=== PATIENT | male | born 1995 | race Caucasian/White ===

== ENCOUNTER 2023-10-02 12:35 | Inpatient (IN) | payer OTHER ==
[2023-10-02 13:19] VITALS: BMI 27.8
[2023-10-02] MEDS ORDERED: IBUPROFEN 400 MG TABLET (FP) PO PRN (16:40)
[2023-10-02] MEDS ORDERED: hydrOXYzine PAMOATE 25 MG CAPSULE (FP) PO PRN (16:40)
[2023-10-02] MEDS ORDERED: BENZONATATE 200 MG CAPSULE PO PRN (16:40)
[2023-10-02] MEDS ORDERED: MAG HYDROX/AL HYDROX/SIMETH 30 ML UNIT-DOSE CUP PO PRN (16:40)
[2023-10-02] MEDS ORDERED: LOPERAMIDE HCL 2 MG CAPSULE PO PRN (16:40)
[2023-10-02] MEDS ORDERED: NALOXONE HCL (KLOXXADO) 8 MG SPRAY NS PRN (16:40)
[2023-10-02] MEDS ORDERED: MAGNESIUM HYDROX 2400MG/30ML ORAL SUSPENSION 30 ML CUP PO PRN (16:40)
[2023-10-02] MEDS ORDERED: ACETAMINOPHEN 325 MG TABLET (FP) PO PRN (16:40)
[2023-10-02] MEDS ORDERED: POLYETHYLENE GLYCOL (HEALTHYLAX) 3350 17 GM PACKET PO PRN (16:40)
[2023-10-02] MEDS ORDERED: guaiFENesin 600 MG TABLET.ER (FP) PO PRN (16:40)
[2023-10-02] MEDS ORDERED: NALOXONE HCL 0.4 MG/ML VIAL IM PRN (16:40)
[2023-10-02] MEDS ORDERED: methaDONE HCL 40 MG DISPERSABLE TABLET PO SCH (16:45)
[2023-10-02] MEDS: MELATONIN 5 MG TABLETS PO SCH (21:30)
[2023-10-02] MEDS: THIAMINE HCL 100 MG TABLET (FP) PO SCH (21:31)
[2023-10-02] MEDS: TUBERCULIN PPD 5 TU/0.1ML SYRINGE (IN PATIENT USE ONLY) ID ONE (21:32)
[2023-10-02] MEDS: PRENATAL VITAMINS W/ FOLIC ACID TABLET (FP) PO SCH (21:33)
[2023-10-03] MEDS: NICOTINE 14 MG/24 HOURS TOPICAL PATCH TD SCH (09:27)
[2023-10-03] MEDS ORDERED: methaDONE HCL 40 MG DISPERSABLE TABLET PO SCH (10:00)
[2023-10-03] MEDS: busPIRone HCL 5 MG TABLET PO SCH (11:54)
[2023-10-03] MEDS: traZODone HCL 50 MG TABLET (FP) PO SCH (21:24)
[2023-10-04] MEDS: busPIRone HCL 5 MG TABLET PO SCH (21:21)
[2023-10-05 15:32] LABS: URINE APPEARANCE CLEAR; URINE BILIRUBIN NEGATIVE (NEGATIVE); URINE COLOR YELLOW; URINE GLUCOSE (UA) NEGATIVE (NEGATIVE); URINE KETONE NEGATIVE (NEGATIVE); URINE LEUK ESTERASE NEGATIVE (NEGATIVE); URINE NITRITE NEGATIVE (NEGATIVE); URINE PROTEIN NEGATIVE (NEGATIVE); URINE UROBILINOGEN 0.2 mg/dL (0.2-1.0)
[2023-10-05] MEDS: NICOTINE POLACRILEX 2 MG GUM BUC PRN (17:35)
[2023-10-06] MEDS ORDERED: COLLOIDAL OATMEAL 1 BAR EACH TP PRN (10:52)
[2023-10-06] MEDS: BENZOCAINE/MENTHOL (CHLORASEPTIC ) LOZENGE MM PRN (23:11)
[2023-10-07] MEDS ORDERED: methaDONE HCL 10 MG TABLET ONE (09:33)
[2023-10-07] MEDS: TUBERCULIN PPD 5 TU/0.1ML VIAL ID ONE (15:15)
[2023-10-08] MEDS: busPIRone HCL 10 MG TABLET (FP) PO SCH (21:35)
[2023-10-09] MEDS: IBUPROFEN 600 MG TABLET (FP) PO PRN (21:55)
[2023-10-13] MEDS: BACLOFEN 10 MG TABLET (FP) PO SCH (14:12)
[2023-10-15] MEDS: CARBAMIDE PEROXIDE 6.5% OTIC 15 ML BOTTLE AU SCH (21:42)
[2023-10-15] MEDS ORDERED: P-EPHED 60MG/TRIPROLIDI 2.5MG TABLET PO PRN (23:31)
[2023-10-16 10:32] LABS: BASO % 0.5 % (0-2.0); EOS % 1.5 % (0-4.5); HEMATOCRIT 39.4 % (35.4-49); LYMPH % 37.2 % (8-40); MCH 28.7 pg (25.7-33.7); MEAN PLT VOLUME 9.9 fl (7.5-11.1); MONO % 9.8 % (3.8-10.2); PLATELET COUNT 184 10^3/uL (134-434); RBC 4.53 M/mm3 (4.00-5.60); WHITE BLOOD COUNT 8.5 K/mm3 (4.0-10.0)
[2023-10-16 11:32] LABS: ALBUMIN 3.5 g/dl (3.4-5.0); BLOOD UREA NITROGEN 13.8 mg/dL (7-18); CALCIUM 9.1 mg/dL (8.5-10.1)
[2023-10-16 11:35] LABS: CREATININE 0.9 mg/dL (0.55-1.3)
[2023-10-16 11:37] LABS: BILIRUBIN,TOTAL 0.2 mg/dL (0.2-1)
[2023-10-19] MEDS: LACTULOSE 20 GM/30 ML UDC (FOR ORAL USE ONLY) PO SCH ×2 (15:14→21:58)
[2023-10-26 07:18] VITALS: RESP 18
[2023-10-26] MEDS: methaDONE HCL 10 MG TABLET PO SCH (11:36)
[2023-10-27] MEDS ORDERED: methaDONE HCL 10 MG TABLET PO SCH (10:15)
[2023-10-30 07:04] VITALS: BP 101/63; PULSE 77; TEMP 97.8
== END 2023-10-30 10:05 | disposition home or self-care (01) | DRG 772 ==
LOC: YASAS 12:35 → Y5N 18:09
PROVIDERS: ADMIT Allergy & Immunology; ATTEND Psychiatry & Neurology Pain Medicine
PROC: HZ42ZZZ Group Counseling for Substance Abuse Treatment, Cognitive-Behavioral (ICD-10-PCS; principal; 2023-10-01)
DX: F11.20 Opioid dependence, uncomplicated (principal); F14.20 Cocaine dependence, uncomplicated; F17.210 Nicotine dependence, cigarettes, uncomplicated; F19.280 Other psychoactive substance dependence with psychoactive substance-induced anxiety disorder; F19.282 Other psychoactive substance dependence with psychoactive substance-induced sleep disorder; F41.9 Anxiety disorder, unspecified; G47.00 Insomnia, unspecified; U07.1 COVID-19; E72.20 Disorder of urea cycle metabolism, unspecified; H61.21 Impacted cerumen, right ear
CPT/HCPCS: 36415; 71045-TC-FY; 80053; 81003; 82140; 85025; 87635; 93005; 93010; J0475

== ENCOUNTER 2024-08-26 20:15 | Emergency (ER) | payer OTHER ==
[2024-08-26 20:24] VITALS: BP 117/77; PULSE 84; RESP 18; TEMP 98.6; BMI 27.1
[2024-08-26] MEDS ORDERED: IBUPROFEN 400 MG TABLET (FP) PO ONE (22:55)
[2024-08-26] MEDS: IBUPROFEN 400 MG TABLET (FP) PO ONE (22:56)
== END 2024-08-26 23:05 | disposition home or self-care (01) ==
LOC: JERFT 20:15 → JER 20:15 → JERFT 23:05
DX: M79.672 Pain in left foot (principal); W18.41XA Slipping, tripping and stumbling without falling due to stepping on object, initial encounter
CPT/HCPCS: 73610-TC-LT-FY; 73630-TC-LT; 99283-25

== ENCOUNTER 2024-08-30 15:42 | Inpatient (IN) | payer OTHER ==
[2024-08-30 17:13] VITALS: BMI 27.4
[2024-08-30] MEDS ORDERED: POLYETHYLENE GLYCOL (HEALTHYLAX) 3350 17 GM PACKET PO PRN (18:22)
[2024-08-30] MEDS ORDERED: BENZOCAINE/MENTHOL (CHLORASEPTIC ) LOZENGE MM PRN (18:22)
[2024-08-30] MEDS ORDERED: MAGNESIUM HYDROX 2400MG/30ML ORAL SUSPENSION 30 ML CUP PO PRN (18:22)
[2024-08-30] MEDS ORDERED: guaiFENesin 600 MG TABLET.ER (FP) PO PRN (18:22)
[2024-08-30] MEDS ORDERED: MAG HYDROX/AL HYDROX/SIMETH 30 ML UNIT-DOSE CUP PO PRN (18:22)
[2024-08-30] MEDS ORDERED: NALOXONE (NARCAN) HCL 4 MG/0.1 ML SPRAY NS PRN (18:22)
[2024-08-30] MEDS ORDERED: LOPERAMIDE HCL 2 MG CAPSULE PO PRN (18:22)
[2024-08-30] MEDS ORDERED: BENZONATATE 200 MG CAPSULE PO PRN (18:22)
[2024-08-30] MEDS ORDERED: hydrOXYzine PAMOATE 25 MG CAPSULE (FP) PO PRN (18:22)
[2024-08-30] MEDS ORDERED: ACETAMINOPHEN 500 MG TABLET (FP) PO PRN (18:44)
[2024-08-30] MEDS: traZODone HCL 50 MG TABLET (FP) PO ONE (21:13)
[2024-08-30] MEDS: MELATONIN 5 MG TABLETS PO SCH (21:13)
[2024-08-30] MEDS: THIAMINE 100 MG TABLET PO SCH (21:13)
[2024-08-30] MEDS: BACLOFEN 10 MG TABLET (FP) PO SCH (21:13)
[2024-08-30] MEDS: GABAPENTIN 300 MG CAPSULE PO SCH (21:13)
[2024-08-30] MEDS: busPIRone HCL 10 MG TABLET (FP) PO ONE (21:14)
[2024-08-30] MEDS ORDERED: GABAPENTIN 300 MG CAPSULE PO ONE (22:00)
[2024-08-31] MEDS: PRENATAL VITAMINS W/ FOLIC ACID TABLET (FP) PO SCH (10:02)
[2024-08-31] MEDS: SENNOSIDES 8.6MG TABLET (FP) PO SCH (10:02)
[2024-08-31] MEDS ORDERED: methaDONE HCL 10 MG TABLET PO SCH (11:15)
[2024-08-31 11:27] LABS: CHLORIDE 105 mmol/L (98-107); POTASSIUM 3.8 mmol/L (3.5-5.1); SODIUM 142 mmol/L (136-145)
[2024-08-31 11:30] LABS: HEMATOCRIT 35.7 % (35.4-49); HEMOGLOBIN 11.6 GM/dL (11.7-16.9); MCH 28.5 pg (25.7-33.7); MCHC 32.6 g/dl (32.0-35.9); MEAN CELL VOLUME 87.5 fl (80-96); MEAN PLT VOLUME 9.4 fl (7.5-11.1); PLATELET COUNT 277 10^3/uL (134-434); RBC 4.09 M/mm3 (4.00-5.60); WHITE BLOOD COUNT 8.1 K/mm3 (4.0-10.0)
[2024-08-31 11:32] LABS: ALBUMIN 3.4 g/dl (3.4-5.0); CALCIUM 9.5 mg/dL (8.5-10.1)
[2024-08-31 11:33] LABS: ANION GAP 8 mmol/L (4-13); BLOOD UREA NITROGEN 6.1 mg/dL (7-18); CO2 29 mmol/L (21-32); GLUCOSE,RANDOM 120 mg/dL (74-106)
[2024-08-31 11:36] LABS: SGOT/AST 17 U/L (15-37); SGPT/ALT 22 U/L (13-61)
[2024-08-31 11:38] LABS: ALK PHOS 88 U/L (45-117); BILIRUBIN,TOTAL 0.3 mg/dL (0.2-1); TOT PROT 6.6 g/dl (6.4-8.2)
[2024-08-31 11:39] LABS: PH,URINE 6.5 (5.0-8.0); URINE APPEARANCE CLEAR; URINE BILIRUBIN NEGATIVE (NEGATIVE); URINE COLOR YELLOW; URINE GLUCOSE (UA) NEGATIVE (NEGATIVE); URINE KETONE NEGATIVE (NEGATIVE); URINE LEUK ESTERASE 1+ (NEGATIVE); URINE NITRITE NEGATIVE (NEGATIVE); URINE PROTEIN NEGATIVE (NEGATIVE); URINE UROBILINOGEN 0.2 mg/dL (0.2-1.0)
[2024-08-31] MEDS: methaDONE 40 MG, methaDONE 10 MG PO SCH (11:48)
[2024-08-31 12:12] LABS: HYALINE CASTS 0.13 /uL (0-3.1); URINE BACTERIA 117.1 /uL (0-1359); URINE RBC 6.7 /uL (0-23.9); URINE WBC 46.3 /uL (0-25.8)
[2024-08-31 12:12] LABS: SYPHILIS W/ RPR CONF NON-REACTIVE (NONREACTIVE)
[2024-08-31] MEDS: busPIRone HCL 10 MG TABLET (FP) PO SCH (21:17)
[2024-08-31] MEDS: traZODone HCL 100 MG TABLET (FP) PO SCH (21:17)
[2024-09-01] MEDS: methaDONE 40 MG, methaDONE 30 MG PO ONE (06:25)
[2024-09-01] MEDS ORDERED: methaDONE 40 MG, methaDONE 30 MG PO ONE (13:27)
[2024-09-02] MEDS: methaDONE 80 MG, methaDONE 10 MG PO ONE (07:18)
[2024-09-02] MEDS ORDERED: methaDONE 80 MG, methaDONE 10 MG PO ONE (13:29)
[2024-09-03] MEDS ORDERED: methaDONE HCL 10 MG TABLET PO SCH (06:00)
[2024-09-03] MEDS: methaDONE 80 MG, methaDONE 20 MG PO SCH (06:13)
[2024-09-06] MEDS: methaDONE 80 MG, methaDONE 20 MG PO SCH (10:04)
[2024-09-08] MEDS ORDERED: SENNOSIDES 8.6MG TABLET (FP) PO SCH (12:00)
[2024-09-08] MEDS ORDERED: SENNOSIDES 8.6MG TABLET (FP) PO PRN (12:16)
[2024-09-08] MEDS ORDERED: ALBUTEROL SO4 HFA INHALER IH PRN (13:30)
[2024-09-08] MEDS ORDERED: BENZOCAINE 20 % GEL TUBE MM PRN (13:51)
[2024-09-08] MEDS: AMOXICILLIN 500 MG CAPSULE (FP) PO SCH (13:59)
[2024-09-16] MEDS: IBUPROFEN 600 MG TABLET (FP) PO PRN (10:47)
[2024-09-17] MEDS: ACETAMINOPHEN 325 MG TABLET (FP) PO PRN (15:45)
[2024-09-19] MEDS: IBUPROFEN 400 MG TABLET (FP) PO PRN (06:03)
[2024-09-21] MEDS: IBUPROFEN 400 MG TABLET (FP) PO PRN (21:11)
[2024-09-25 06:56] VITALS: TEMP 97.7
[2024-09-27 07:00] VITALS: BP 105/64; PULSE 87; RESP 16
[2024-09-27] MEDS: NALOXONE (NYS OPIOID OVERDOSE PROGRAM) 4 MG/0.1 ML SPRAY NS SCH (09:44)
== END 2024-09-27 10:07 | disposition home or self-care (01) | DRG 772 ==
LOC: YASAS 15:42 → Y3W 18:35
PROVIDERS: ADMIT Psychiatry & Neurology Pain Medicine; ATTEND Family Medicine Addiction Medicine
PROC: HZ42ZZZ Group Counseling for Substance Abuse Treatment, Cognitive-Behavioral (ICD-10-PCS; principal; 2024-08-30)
DX: F14.20 Cocaine dependence, uncomplicated (principal); F11.20 Opioid dependence, uncomplicated; F17.210 Nicotine dependence, cigarettes, uncomplicated; F19.280 Other psychoactive substance dependence with psychoactive substance-induced anxiety disorder; G47.00 Insomnia, unspecified; J45.909 Unspecified asthma, uncomplicated; M79.2 Neuralgia and neuritis, unspecified; K08.89 Other specified disorders of teeth and supporting structures; R76.11 Nonspecific reaction to tuberculin skin test without active tuberculosis
CPT/HCPCS: 36415; 71046-TC-FY; 80053; 80307; 81003; 82962; 85027; 86780; 86803; J0475